=== PATIENT | male | born 1940 | race Caucasian/White ===

== ENCOUNTER → 2016-09-16 | Outpatient (CLI) | payer MEDICARE, OTHER ==
[~2016-09-16] MED LIST: CEFD300C2 PO; CYCL15CA PO; DORZ2SOL15 EACHEYE; FLU05NSL; GUAI600T23 PO; LATA0.0015 EACHEYE; LEVE500T3 PO; MAGN400T5 PO; POLYSOL5 EACHEYE; [UNRECOGNIZED DRUG - OTHER] SC
[2016-09-16 13:06] LABS: BUN/Creatinine Ratio 19.7; Calcium 8.9 mg/dL (8.5-10.1); Potassium 3.9 mmol/L (3.5-5.1)
== END | disposition home or self-care (01) ==
LOC: LAB 11:05
PROVIDERS: ATTEND Internal Medicine Cardiovascular Disease
DX: I10 Essential (primary) hypertension (principal)
CPT/HCPCS: 36415; 80048